=== PATIENT | male | born 1965 | race Caucasian/White ===

== ENCOUNTER 2023-03-18 11:55 | Emergency (ER) | payer OTHER, SELFPAY ==
--- NOTE | 2023-03-18 11:58 | XR_ITS ---
WS: [id number] EXAMINATION: XR knee RT 3V* [id number] REASON FOR EXAM: injury/pain COMPARISON: None available. ORDER DATE: 03/18/2023 12:23 PM FINDINGS: There are marginal osteophytes associated with the tibial spines, patella and other articular margins with medial compartment narrowing. There is no sign of any acute fracture or dislocation. IMPRESSION: MEDIAL COMPARTMENT NARROWING WITH OSTEOARTHRITIC CHANGES.
[2023-03-18 12:07] VITALS: BP 186/100; PULSE 66; RESP 16; TEMP 36.7; O2SAT 96; BMI 43.8
--- NOTE | 2023-03-18 12:15 | ED_ITS ---
HPI - Extremity Injury (Lower) General: Chief Complaint: Extremity Injury, Lower Stated Complaint: right knee injury Time Seen by Provider: 03/18/23 11:58 Source: patient Mode of arrival: wheelchair Limitations: no limitations History of Present Illness: Patient is a 57-year-old male who presents to ED today with complaint of a right knee injury. Patient states yesterday while trying to stand up he heard a pop in the medial aspect of his right knee. Patient has had fairly significant pain since. He feels like he has noticed some swelling. He denies any previous injuries to that knee. Patient states he is barely able to ambulate and do so by hobbling around. complaint: knee injury Onset (ago): day(s) (yesterday) Injury: Right: knee Place: home Severity: severe Relieving factors: immobilization Exacerbating factors: weight bearing, movement and palpation Associated symptoms: Reports inability to bear weight Other symptoms: none Review of Systems Card: Denies: chest pain Resp: Denies: dyspnea Musc: Reports: joint pain (R knee) and joint swelling (R knee); Denies: extremity pain, extremity swelling, joint redness or joint warmth Neuro: Reports: difficulty walking (secondary to R knee pain); Denies: numbness in extremities or sensory changes Physical Exam Const: COMMON NORMALS: no acute distress, patient oriented x3, no limitations, alert and well nourished GENERAL APPEARANCE: cooperative Extremity: COMMON NORMALS: full ROM, capillary refill normal, no clubbing, cyanosis or edema, no calf tenderness and no pedal edema GENERAL: Yes normal exam except as noted RIGHT LOWER EXTREMITY: Yes knee joint (TTP posteriomedial R knee; mild swelling noted) Right knee: Yes ROM (is able to flex/extend knee), Yes neurovascular exam (normal) and Yes other (no obvious joint laxity noted) Neuro: COMMON NORMALS: patient oriented x3, moves all extremities, no focal motor deficits and no sensory deficits noted SENSORIUM/ORIENTATION: Yes alert Course Vital Signs: Vital signs: Vital Signs Temperature 98.1 F 03/18/23 12:07 Pulse Rate 66 03/18/23 12:07 Respiratory Rate 16 03/18/23 12:07 Blood Pressure 186/100 03/18/23 12:07 Pulse Oximetry 96 03/18/23 12:07 Oxygen Delivery Me thod Room Air 03/18/23 12:07 MDM - Extremity Injury (Lower) Medical Decision Making XR negative. He states he has a knee sleeve at home he can start wearing. Crutches given with instructions for weightbearing as tolerated. He states he does not have a primary care provider so case management referral made for this. We will place him on medications to help with his discomfort. Patient was noted to be hypertensive upon arrival with a BP of 186/100. In his room during my assessment BP is in the 160s/80s. He states he does not take his blood pressure at home. Recommend he keep a blood pressure log over the next 2 weeks and follow-up with primary care in regards to this. All radiology interpretation(s) finalized by discharge Discharge Plan Discharge Patient Disposition: Home Clinical Impression: Injury of knee, right Qualifiers: Encounter type: initial encounter Qualified Code(s): S89.91XA - Unspecified injury of right lower leg, initial encounter Condition: Stable Prescriptions: New ibuprofen 800 mg tablet 800 mg PO Q8H PRN (Reason: pain) Qty: 20 0RF hydrocodone-acetaminophen 5-325 mg tablet 1 tab PO Q6H PRN (Reason: pain) Qty: 14 0RF Medrol (Cliff) 4 mg tablets,dose pack See Rx Instructions .ROUTE .COMPLEX Qty: 21 0RF Rx Instructions: orally per package directions Discharge Orders: Discharge ED (Routine); Ordered 03/18/23 Ordered By: Ruthy Marino Patient Instructions: Knee Pain (ED), Opioid Safety, Pain Management Activity Restrictions/Additional Instructions: As we discussed please follow-up with primary care for further evaluation/treatment of your knee injury. Case management should contact you shortly to help set you up with this follow-up appointment. Ice and elevate to help with the swelling. We discussed knee bracing/sleeve and crutches for weightbearing as tolerated. Coding Level of Care Code ED Sandwich Counter Attendant for Dino Barros
--- NOTE | 2023-03-19 09:09 | PC.SOCIAL ---
PCP Appt Attempted to reach patient to discuss options for PCP appt, no answer. Voicemail left requesting a call back.
== END 2023-03-18 13:08 | disposition home or self-care (01) ==
PROVIDERS: Emergency Provider Physician Assistant
DX: S89.91XA Unspecified injury of right lower leg, initial encounter (principal); X58.XXXA Exposure to other specified factors, initial encounter
CPT/HCPCS: 73562; 99283; E0114

== ENCOUNTER 2023-04-13 08:39 | Outpatient (CLI) | payer OTHER, SELFPAY ==
--- NOTE | 2023-04-13 08:42 | MR_ITS ---
WS: [id number] MRI RIGHT KNEE, with and without contrast HISTORY: Right medial knee pain COMPARISON: None available. Pre and postcontrast imaging is performed of the RIGHT knee. MultiHance 20 mL IV. Anterior cruciate ligament: Intact. Posterior cruciate ligament: Intact. Medial collateral ligament: MCL is being displaced to the joint line by the extruded meniscus and ost eophytes. No tears are identified in the medial collateral ligament. Posterior lateral corner structures: Intact. Medial menisci: Increased signal throughout majority of the posterior horn. There is abnormal signal with blunting of the free edge abnormal signal continues to the body of the meniscus. Lateral meniscus: Intact. Normal signal, size and shape. Extensor mechanism: Distal quadriceps tendon and patellar tendons are intact. Fluid and soft tissue: A very small suprapatellar joint effusion. Tiny amount of fluid in the expecte d location Hagen's cyst. Osseous and articular structures: Patellofemoral compartment: Very minimal joint space narrowing. No marrow edema. Minimal chondromalac ia involving the medial patellar cartilage. Medial compartment: Moderate narrowing of the medial compartment. Moderate diffuse chondromalacia. No fractures or marrow edema. Lateral compartment: Minimal narrowing. Mild chondromalacia. No marrow edema. Postcontrast imaging is obtained in 3 planes. No enhancing masses. There is no evidence for effusion or infection. IMPRESSION: 1. Partially extruded meniscus from the medial compartment displaces the MCL. 2. Abnormal signal throughout majority of the posterior horn medial meniscus. Complex tear involving the free edge and the body of the meniscus. 3. Moderate medial compartment narrowing with moderate chondromalacia along the weightbearing surface of the femoral condyle and tibial plateau. 4. Very small joint effusion and small Hagen's cyst.
[2023-04-13] MEDS: gadobenate dimeglumine 20 mL vial IV (09:14)
== END 2023-04-13 08:40 | disposition home or self-care (01) ==
PROVIDERS: Visit Provider Nurse Practitioner Family
DX: M23.8X1 Other internal derangements of right knee (principal); S83.231A Complex tear of medial meniscus, current injury, right knee, initial encounter; X58.XXXA Exposure to other specified factors, initial encounter; M22.41 Chondromalacia patellae, right knee; M71.21 Synovial cyst of popliteal space [Baker], right knee
CPT/HCPCS: 73723; A9577